=== PATIENT | female | born 1995 | race Caucasian/White ===

== ENCOUNTER 2020-06-14 19:19 | Emergency (ER) | payer BC ==
[2020-06-14 19:29] VITALS: BP 126/81; PULSE 75
[2020-06-14] MEDS ORDERED: Lactated Ringers 1,000 ML IV ONE ×2 (19:54→20:32)
[2020-06-14] MEDS ORDERED: diphenhydrAMINE 50 MG/ML SDV IVPUSH ONE (20:15)
[2020-06-14] MEDS ORDERED: Acetaminophen 325 MG Tab PO ONE (20:15)
--- NOTE | 2020-06-14 20:24 | EDM.PDOC ---
ED HPI GENERAL MEDICAL PROBLEM - General Chief Complaint: Headache Stated Complaint: MIGRAINE ONLY IN PAIN, 32 WEEKS Time Seen by Provider: 06/14/20 20:21 Source of Information: Reports: Patient History Limitations: Reports: No Limitations - History of Present Illness INITIAL COMMENTS - FREE TEXT/NARRATIVE: states [id number]. @ 32 weeks, last OB visit 1 1/2 months ago in [facility] her OB-MD. just moved into town but wants to keep her [place]. gives h/o monthly migraines and OB-MD aware. present episode all day with N & V but now stopped. pain same as always nothing unusual. Treatments FRONT OFFICE HELP: Reports: Acetaminophen headache Pain Score (Numeric/FACES): 8 - Related Data Allergies Allergy/AdvReac Type Severity Reaction Status Date / Time VITAMIN WATER Allergy Rash Uncoded 06/14/20 19:36 Home Meds: Home Meds Acetaminophen [Acetaminophen Extra Strength] 500 mg PO Q4H 06/14/20 [History] Vit 75/Iron/Folic/Om3 [One A Day Dha Pack] 1 each PO DAILY 06/14/20 [History] Past Medical History - Past Health History Medical/Surgical History: Denies Medical/Surgical History Social & Family History - Tobacco Use Smoking Status *Q: Never Smoker Second Hand Smoke Exposure: No - Caffeine Use Caffeine Use: Reports: Soda - Recreational Drug Use Recreational Drug Use: No ED ROS GENERAL - Review of Systems Review Of Systems: Comprehensive ROS is negative, except as noted in HPI. - Physical Exam Exam: See Below Exam Limited By: No Limitations General Appearance: Alert, WD/WN, Mild Distress, Other (discomfort) Eye Exam: Bilateral Eye: PERRL (ER @ 4mm) Ears: Hearing Grossly Normal Throat/Mouth: Normal Voice, No Airway Compromise Head Exam: Atraumatic Neck: Non-Tender, Full Range of Motion Respiratory/Chest: No Respiratory Distress Cardiovascular: Regular Rate, Rhythm GI/Abdominal: Soft, Non-Tender Neuro Exam (Abbreviated): Alert, Oriented, Normal Cognition, Normal Gait, No Motor/Sensory Deficits Psychiatric: Flat Affect Skin Exam: Warm, Dry, Normal Color Course - Vital Signs Last Recorded V/S: Last Vital Signs Temp 36.9 C 06/14/20 19:28 Pulse 75 06/14/20 19:28 Resp 20 06/14/20 19:28 BP 126/81 06/14/20 19:28 Pulse Ox 100 06/14/20 19:28 - Orders/Labs/Meds Meds: Medications Discontinued Medications Generic Name Dose Route Start Last Admin Trade Name Joleen MENDEZ Reason Stop Dose Admin Acetaminophen 325 mg 06/14/20 20:15 06/14/20 20:30 Tylenol PO 06/14/20 20:16 Not Given NOW ONE Acetaminophen 1,000 mg 06/14/20 20:25 06/14/20 20:29 Tylenol Extra Strength PO 06/14/20 20:26 1,000 mg ONETIME ONE Administration Diphenhydramine HCl 25 mg 06/14/20 20:15 06/14/20 20:23 Benadryl IVPUSH 06/14/20 20:16 25 mg ONETIME ONE Administration Lactated Ringer's 1,000 mls @ 999 mls/hr 06/14/20 19:54 06/14/20 20:41 Ringers, Lactated IV 06/14/20 20:54 Infused .BOLUS ONE Infusion Lactated Ringer's 1,000 mls @ 999 mls/hr 06/14/20 20:32 06/14/20 21:41 Ringers, Lactated IV 06/14/20 21:32 Infused .BOLUS ONE Infusion Morphine Sulfate 2 mg 06/14/20 21:05 06/14/20 21:13 Morphine IVPUSH 06/14/20 21:06 2 mg ONETIME ONE Administration Ondansetron HCl 4 mg 06/14/20 21:06 06/14/20 21:12 Zofran IVPUSH 06/14/20 21:07 4 mg ONETIME ONE Administration - Re-Assessments/Exams Free Text/Narrative Re-Assessment/Exam: 06/14/20 20:33 re-exam; starting to feel better somewhat. 06/14/20 21:48 re-exam; feeling much better now. Departure - Departure Time of Disposition: 21:49 Disposition: Home, Self-Care 01 Condition: Good Clinical Impression: Migraine - Discharge Information Instructions: Migraine Headache, [id number] Forms: ED Department Discharge Additional Instructions: 1) follow up with family doctor Sepsis Event Note (ED) - Evaluation Sepsis Screening Result: No Definite Risk - Focused Exam Vital Signs: Vital Signs Temp Pulse Resp BP Pulse Ox 06/14/20 19:28 36.9 C 75 20 126/81 100
[2020-06-14] MEDS ORDERED: Acetaminophen 500 MG Tab PO ONE (20:25)
[2020-06-14] MEDS ORDERED: Morphine 2 MG/ML SYRINGE IVPUSH ONE (21:05)
[2020-06-14] MEDS ORDERED: Ondansetron 4 MG/2 ML SDV IVPUSH ONE (21:06)
== END 2020-06-14 22:13 | disposition home or self-care (01) ==
LOC: DL.ED 19:19
DX: O99.353 Diseases of the nervous system complicating pregnancy, third trimester (principal); G43.909 Migraine, unspecified, not intractable, without status migrainosus; Z3A.32 32 weeks gestation of pregnancy; Z91.048 Other nonmedicinal substance allergy status
CPT/HCPCS: 96361; 96374; 96375; 99283; A9270; J1200; J2270; J2405; J7120

== ENCOUNTER 2020-07-05 18:53 | Emergency (ER) | payer BC, MEDICAID ==
[2020-07-05 19:12] VITALS: BP 110/69; PULSE 77
[2020-07-05] MEDS ORDERED: Metoclopramide 10 MG/2 ML SDV IVPUSH ONE (19:22)
[2020-07-05] MEDS ORDERED: diphenhydrAMINE 50 MG/ML SDV IVPUSH ONE (19:22)
[2020-07-05] MEDS ORDERED: Sodium Chloride 0.9% 1,000 ML IV ONE (19:22)
--- NOTE | 2020-07-05 19:37 | EDM.PDOC ---
ED HPI GENERAL MEDICAL PROBLEM - General Chief Complaint: Headache Stated Complaint: MIGRAINE, PAIN TODY LEFT WORK. Time Seen by Provider: 07/05/20 19:32 Source of Information: Reports: Patient History Limitations: Reports: No Limitations - History of Present Illness INITIAL COMMENTS - FREE TEXT/NARRATIVE: states [id number] @ 34 weeks. gives h/o migraines, [place]. been nauseous. Right Headache Pain Score (Numeric/FACES): 8 - Related Data Allergies Allergy/AdvReac Type Severity Reaction Status Date / Time VITAMIN WATER Allergy Rash Uncoded 07/05/20 19:12 Home Meds: Home Meds Acetaminophen [Acetaminophen Extra Strength] 500 mg PO Q4H 06/14/20 [History] Vit 75/Iron/Folic/Om3 [One A Day Dha Pack] 1 each PO DAILY 06/14/20 [History] Past Medical History - Past Health History Medical/Surgical History: Denies Medical/Surgical History Genitourinary History: Reports: Renal Calculus [employer]CTION [employer] History: Reports: Neurological History: Reports: Migraines Dermatologic History: Reports: Other (See Below) - Infectious Disease History Infectious Disease History: Reports: Other (See Below) Other Infectious Disease History: Vaginal herpes. - Past Surgical History Female Surgical History: Reports: None Social & Family History - Tobacco Use Smoking Status *Q: Never Smoker Second Hand Smoke Exposure: No - Caffeine Use Caffeine Use: Reports: Soda - Recreational Drug Use Recreational Drug Use: No ED ROS GENERAL - Review of Systems Review Of Systems: Comprehensive ROS is negative, except as noted in HPI. - Physical Exam Exam: See Below Exam Limited By: No Limitations General Appearance: Alert, WD/WN, Mild Distress, Other (discomfort) Eye Exam: Bilateral Eye: PERRL (pupils ER @ 4mm) Ears: Hearing Grossly Normal Throat/Mouth: Normal Voice, No Airway Compromise Head Exam: Atraumatic Neck: Non-Tender, Full Range of Motion Respiratory/Chest: No Respiratory Distress Cardiovascular: Regular Rate, Rhythm GI/Abdominal: Soft, Non-Tender Neuro Exam (Abbreviated): Alert, Oriented, Normal Cognition, Normal Gait, No Motor/Sensory Deficits Psychiatric: Normal Affect, Normal Mood Skin Exam: Warm, Dry, Normal Color Course - Vital Signs Last Recorded V/S: Last Vital Signs Temp 37.1 C 07/05/20 19:02 Pulse 77 07/05/20 19:02 Resp 19 07/05/20 19:02 BP 110/69 07/05/20 19:02 Pulse Ox 100 07/05/20 19:02 - Orders/Labs/Meds Orders: Active Orders 24 hr Category Date Time Status Sodium Chloride 0.9% [Normal Saline] 1,000 ml Med 07/05/20 19:22 Active IV .BOLUS Medication Orders Sodium Chloride (Normal Saline) 1,000 mls @ 999 mls/hr IV .BOLUS ONE Stop: 07/05/20 20:22 Last Admin: 07/05/20 19:30 Dose: 999 mls/hr Documented by: YORDY Meds: Medications Generic Name Dose Route Start Last Admin Trade Name Freq PRN Reason Stop Dose Admin Sodium Chloride 1,000 mls @ 999 mls/hr 07/05/20 19:22 07/05/20 19:30 Normal Saline IV 07/05/20 20:22 999 mls/hr .BOLUS ONE Administration Discontinued Medications Generic Name Dose Route Start Last Admin Trade Name Freq PRN Reason Stop Dose Admin Diphenhydramine HCl 50 mg 07/05/20 19:22 07/05/20 19:30 Benadryl IVPUSH 07/05/20 19:23 50 mg ONETIME ONE Administration Metoclopramide HCl 10 mg 07/05/20 19:22 07/05/20 19:32 Reglan IVPUSH 07/05/20 19:23 10 mg ONETIME ONE Administration - Re-Assessments/Exams Free Text/Narrative Re-Assessment/Exam: 07/05/20 20:22 re-exam: s/p IV + IV Rx = much better. Departure - Departure Time of Disposition: 20:31 Disposition: Home, Self-Care 01 Condition: Good Clinical Impression: Migraine - Discharge Information Instructions: Migraine Headache, [id number] Forms: ED Department Discharge Additional Instructions: 1) follow up with family doctor 2) recheck as needed Sepsis Event Note (ED) - Evaluation Sepsis Screening Result: No Definite Risk - Focused Exam Vital Signs: Vital Signs Temp Pulse Resp BP Pulse Ox 07/05/20 19:02 37.1 C 77 19 110/69 100 - My Orders Last 24 Hours: My Active Orders 07/05/20 19:22 Sodium Chloride 0.9% [Normal Saline] 1,000 ml IV .BOLUS - Assessment/Plan Last 24 Hours: My Active Orders 07/05/20 19:22 Sodium Chloride 0.9% [Normal Saline] 1,000 ml IV .BOLUS
== END 2020-07-05 20:40 | disposition home or self-care (01) ==
LOC: DL.ED 18:53
DX: O99.353 Diseases of the nervous system complicating pregnancy, third trimester (principal); G43.909 Migraine, unspecified, not intractable, without status migrainosus; Z3A.30 30 weeks gestation of pregnancy
CPT/HCPCS: 96374; 96375; 99283; J1200; J2765; J7030

== ENCOUNTER 2021-12-31 15:05 | Emergency (ER) | payer SELFPAY ==
[2021-12-31 15:27] VITALS: BP 121/81; PULSE 80
[2021-12-31] MEDS ORDERED: Bupivacaine 0.5% 30 ML SDV NERVRT ONE (15:41)
[2021-12-31 16:30] LABS: ANION GAP 13.7 mEq/L (7-13); CHLORIDE,CL 105 mmol/L (98-107); SODIUM,NA 142 mmol/L (136-145)
== END 2021-12-31 16:48 | disposition home or self-care (01) ==
LOC: DL.ED 15:05
DX: K08.89 Other specified disorders of teeth and supporting structures (principal); Z91.018 Allergy to other foods
CPT/HCPCS: 36415; 64400; 80053; 84703; 85025; 86140; 99283; J3490

== ENCOUNTER 2022-05-29 11:24 | Emergency (ER) | payer MEDICAID ==
[2022-05-29 12:51] VITALS: BP 118/82; PULSE 64
== END 2022-05-29 14:45 | disposition left against medical advice (07) ==
LOC: DL.ED 11:24
DX: Z53.21 Procedure and treatment not carried out due to patient leaving prior to being seen by health care provider (principal)

== ENCOUNTER 2023-09-26 09:53 | Emergency (ER) | payer MEDICAID ==
[2023-09-26] MEDS ORDERED: diphenhydrAMINE 50 MG/ML SDV IVPUSH ONE (10:03)
[2023-09-26] MEDS ORDERED: Sodium Chloride 0.9% 10 ML Syringe FLUSH PRN (10:03)
[2023-09-26] MEDS ORDERED: Metoclopramide 10 MG/2 ML SDV IVPUSH ONE (10:03)
[2023-09-26] MEDS ORDERED: Sodium Chloride 0.9% 1,000 ML IV ONE (10:03)
[2023-09-26] MEDS ORDERED: Ketorolac 30 MG/ML SDV IVPUSH ONE (10:03)
[2023-09-26 10:14] VITALS: BP 120/88; PULSE 74
== END 2023-09-26 11:02 | disposition home or self-care (01) ==
LOC: DL.ED 09:53
DX: G43.919 Migraine, unspecified, intractable, without status migrainosus (principal)
CPT/HCPCS: 96361; 96374; 96375; 99282; 99283-25; J1200; J1885; J2765; J3490; J7030

== ENCOUNTER 2023-09-27 15:14 | Emergency (ER) | payer MEDICAID ==
[2023-09-27] MEDS ORDERED: Sodium Chloride 0.9% 1,000 ML IV ONE (15:19)
[2023-09-27] MEDS ORDERED: Metoclopramide 10 MG/2 ML SDV IVPUSH ONE (15:19)
[2023-09-27] MEDS ORDERED: diphenhydrAMINE 50 MG/ML SDV IVPUSH ONE (15:19)
[2023-09-27] MEDS ORDERED: Ketorolac 30 MG/ML SDV IVPUSH ONE (15:19)
[2023-09-27] MEDS ORDERED: Sodium Chloride 0.9% 10 ML Syringe FLUSH PRN (15:19)
[2023-09-27 16:11] LABS: CORONAVIRUS COVID-19 NAA NEGATIVE (NEGATIVE); INFLUENZA A NAA NEGATIVE (NEGATIVE); INFLUENZA B NAA NEGATIVE (NEGATIVE); RESPIRATORY SYNCYTIAL VIR NAA NEGATIVE (NEGATIVE)
[2023-09-27 16:44] VITALS: BP 132/78; PULSE 87
== END 2023-09-27 16:48 | disposition home or self-care (01) ==
LOC: DL.ED 15:14
DX: G43.909 Migraine, unspecified, not intractable, without status migrainosus (principal); Z20.822 Contact with and (suspected) exposure to COVID-19
CPT/HCPCS: 0241U; 96361; 96374; 96375; 99283; 99284-25; J1200; J1885; J2765; J3490; J7030

== ENCOUNTER 2025-01-20 16:24 | Emergency (ER) | payer BC, MEDICAID ==
[2025-01-20] MEDS: Prochlorperazine 5 MG Tab PO ONE (17:40)
[2025-01-20] MEDS: Sodium Chloride 0.9% 1,000 ML IV SCH (17:40)
[2025-01-20] MEDS: Sodium Chloride 0.9% 500 ML IV SCH (18:20)
[2025-01-20] MEDS: Ketorolac 30 MG/ML SDV IVPUSH ONE (18:21)
[2025-01-20] MEDS: diphenhydrAMINE 50 MG/ML SDV IVPUSH ONE (18:22)
[2025-01-20 18:41] VITALS: BP 129/78; PULSE 71
== END 2025-01-20 19:25 | disposition home or self-care (01) ==
LOC: DL.ED 16:24
DX: G43.909 Migraine, unspecified, not intractable, without status migrainosus (principal)
CPT/HCPCS: 87428; 96361; 96374; 96375; 99283; 99284; J1200; J1885; J7030; J7040; Q0164

== ENCOUNTER 2025-04-29 15:14 | Emergency (ER) | payer BC ==
[2025-04-29 15:55] LABS: BASOPHILS PERCENT AUTO 0.5 % (0.0-1.0); EOSINOPHILS PERCENT AUTO 2.4 % (1.0-3.0); HEMATOCRIT 40.8 % (37.0-47.0); HEMOGLOBIN 14.1 g/dL (12.0-16.0); LYMPHOCYTES PERCENT AUTO 30.8 % (20.5-50.1); MEAN CORPUSCULAR HGB CONC 34.6 g/dL (33.0-35.0); MEAN CORPUSCULAR VOLUME 92.7 fL (80-100); MONOCYTES PERCENT AUTO 12.3 % (2-8); PLATELET COUNT,PLT 274 10^3/uL (150-450); WHITE BLOOD CELL COUNT,WBC 9.2 10^3/uL (5.0-10.0)
[2025-04-29 16:21] LABS: A/G RATIO 1.2; ALANINE AMINOTRANSFERASE,ALT 30 U/L (14-59); ALBUMIN 4.6 g/dL (3.4-5.0); ALKALINE PHOSPHATASE 71 U/L (46-116); ANION GAP 12.2 mEq/L (7-13); ASPARTATE AMNIOTRANSFERASE,AST 18 U/L (15-37); BILIRUBIN TOTAL 0.5 mg/dL (0.2-1.0); BLOOD UREA NITROGEN,BUN 7 mg/dL (7-18); BUN/CREATININE RATIO 9.1 (No establ ref range); CALCIUM 9.7 mg/dL (8.5-10.1); CARBON DIOXIDE,CO2 29 mmol/L (21-32); CHLORIDE,CL 104 mmol/L (98-107); CREATININE 0.77 mg/dL (0.55-1.02); GLUCOSE RANDOM 86 mg/dL (70-99); POTASSIUM,K 4.2 mmol/L (3.5-5.1); PROTEIN TOTAL,TP 8.5 g/dL (6.4-8.2); SODIUM,NA 141 mmol/L (136-145); TSH ULTRASENSITIVE 7.24 uIU/mL (0.36-3.74)
[2025-04-29 16:24] LABS: ACETAMINOPHEN 0 ug/mL (10-30 (Therapeutic)); ESTIMATED GFR 105 mL/min (>=60); ETHANOL BLOOD MEDICAL < 3 mg/dL (0)
[2025-04-29] MEDS: Ketorolac 30 MG/ML SDV IM ONE (16:33)
[2025-04-29 17:59] VITALS: BP 122/88; PULSE 69
== END 2025-04-29 18:04 | disposition home or self-care (01) ==
LOC: DL.ED 15:14
DX: F32.A Depression, unspecified (principal)
CPT/HCPCS: 36415; 80053; 80143; 80307; 84439; 84443; 85025; 96372; 99284; J1885